=== PATIENT | female | born 1930 | race Caucasian/White ===

== ENCOUNTER 2018-03-07 17:16 | Emergency (ER) | payer MEDICAID, OTHER ==
[~2018-03-07] VITALS: Ht 154.9 cm; Wt 77.2 kg
[~2018-03-07 17:16] MED LIST: CHOL100062 PO; PRAM0.5T5 PO; PRAV80TA27 PO; RIVA20TA5 PO; SIN25100 PO
[2018-03-07] MEDS ORDERED: HYDROmorphONE 2 MG/ML SYG IV ONE (17:30)
[2018-03-07] MEDS ORDERED: ONDANSETRON 4 MG INJ IV ONE (17:30)
[2018-03-07 17:40] VITALS: Ht 154.9 cm; Wt 77.2 kg
--- NOTE | 2018-03-07 19:01 | ERD ---
ER Documentation Chief Complaint Chief Complaint PT BIB RA WITH C/O L HIP AFTER GLF, NO KO. HPI This is a 88-year-old female who is sitting on the side of her bed when she slid off the end and landed on her buttocks/left hip. This happened just prior to arrival. The pain is in the left hip and described as sharp and worse with mo vement. She is unable to bear weight. She did not have any other injury no radicular pain down the legs or loss of bowel or bladder no low back pain. No loss of consciousness ROS All systems reviewed and are negative except as per history of present illness. Medications Home Meds Reported Medications Pravastatin Sodium* (Pravastatin Sodium*) 80 Mg Tablet, 80 MG PO HS, TAB 10/05/14 Pramipexole* (Mirapex*) 0.5 Mg Tablet, 0.5 MG PO HS, TAB 10/05/14 Rivaroxaban* (Xarelto*) 20 Mg Tablet, 20 MG PO WITH LUNCH, TAB 10/05/14 Cholecalciferol* (Vitamin D3*) 1,000 Unit Tablet, 1000 UNIT PO DAILY, TAB 10/05/14 Carbidopa-Levodopa* (Sinemet*) 25-100 Mg Tab, 1 TAB PO TID, TAB 10/05/14 Allergies Allergies: Coded Allergies: Penicillins (Verified Allergy, Unknown, 10/05/14) PMhx/Soc History of Surgery: No Anesthesia Reaction: No Hx Neurological Disorder: No Hx Respiratory Disorders: Yes (ASTHMA) Hx Cardiac Disorders: Yes (HTN, DVT) Hx Psychiatric Problems: No Hx Miscellaneous Medical Probl: No Hx Alcohol Use: No Hx Substance Use: No Hx Tobacco Use: No Smoking Status: Never smoker FmHx Family History: No coronary disease Physical Exam Vitals Vital Signs Date Temp Pulse Resp B/P (MAP) Pulse Ox O2 O2 Flow FiO2 Time Delivery Rate 03/07/18 97.9 80 18 196/96 94 17:40 (129) Physical Exam Const: Well-developed, well-nourished Head: Atraumatic, normocephalic Eyes: Normal Conjunctiva, PERRLA, EOMI, normal sclera, no nystagmus ENT: Normal External Ears, Nose and Mouth, moist mucus membranes. Neck: Full range of motion. No meningismus, no lymphadenopathy. Resp: Clear to auscultation bilaterally, no wheezing, rhonchi, rales Cardio: Regular rate and rhythm, no murmurs, S1 S2 present Abd: Soft, non tender x 4, non distended. Normal bowel sounds, no guarding or rebound, no pulsitile abdominal masses or bruits Skin: No petechiae or rashes, no ecchymosis , no maculopapular rash Back: No midline or flank tenderness Ext: No cyanosis, or edema, FROM x 4, the left leg is shortened and externally rotated, no range of motion of left hip due to pain, neurovascularly intact x 4 Neur: Awake and alert, STR 5/5 x 4, sensation intact x 4, no focal findings, cerebellum intact Psych: Normal Mood and Affect Result Diagram: 03/07/18173903/07/181739 Results 24 hrs Laboratory Tests Test 03/07/18 17:40 White Blood Count 5.4 10^3/ul Red Blood Count 4.59 10^6/ul Hemoglobin 13.7 g/dl Hematocrit 43.4 % Mean Corpuscular Volume 94.6 fl Mean Corpuscular Hemoglobin 29.8 pg Mean Corpuscular Hemoglobin Concent 31.6 g/dl Red Cell Distribution Width 13.8 % Platelet Count 187 10^3/UL Mean Platelet Volume 9.3 fl Immature Granulocytes % 0.400 % Neutrophils % 61.0 % Lymphocytes % 27.4 % Monocytes % 6.6 % Eosinophils % 3.9 % Basophils % 0.7 % Nucleated Red Blood Cells % 0.0 /100WBC Immature Granulocytes # 0.020 10^3/ul Neutrophils # 3.3 10^3/ul Lymphocytes # 1.5 10^3/ul Monocytes # 0.4 10^3/ul Eosinophils # 0.2 10^3/ul Basophils # 0.0 10^3/ul Nucleated Red Blood Cells # 0.0 10^3/ul Prothrombin Time 12.3 Sec Prothrombin Time Ratio 1.0 INR International Normalized Ratio 0.90 Activated Partial Thromboplast Time 26.2 Sec Sodium Level 141 mmol/L Potassium Level 4.4 mmol/L Chloride Level 104 mmol/L Carbon Dioxide Level 28 mmol/L Anion Gap 9 Blood Urea Nitrogen 26 mg/dl Creatinine 1.27 mg/dl Est Glomerular Filtrat Rate mL/min mL/min Glucose Level 115 mg/dl Calcium Level 9.5 mg/dl Total Bilirubin 0.2 mg/dl Direct Bilirubin 0.00 mg/dl Indirect Bilirubin 0.2 mg/dl Aspartate Amino Transf (AST/SGOT) 25 IU/L Alanine Aminotransferase (ALT/SGPT) 10 IU/L Alkaline Phosphatase 92 IU/L Total Protein 8.2 g/dl Albumin 4.6 g/dl Current Medications Medications Dose Sig/Tc Start Time Status Last (Trade) Ordered Route PRN Stop Time Admin Dose Reason Admin 0.5 mg ONCE ONCE 03/07/18 DC 03/07/18 Hydromorphone IV 17:30 03/07/18 17:47 HCl 17:31 (Dilaudid) Ondansetron 4 mg ONCE ONCE 03/07/18 DC 03/07/18 HCl (Zofran IV 17:30 03/07/18 17:46 Inj) 17:31 Procedures/MDM Ordering MD: DONALD LAURA DO Location: E/R Room/Bed: PROCEDURE: One view chest radiograph. CLINICAL INDICATION: Chest pain. Trauma TECHNIQUE: An AP view of the chest was obtained. COMPARISON: 10/05/2014 FINDINGS: Mediastinum: There is calcification of the wall of the thoracic aorta. Heart size: Normal Pulmonary vasculature: No visible engorgement. Lungs: Clear. Lung volumes are very low. Costophrenic sulci: Chronic blunting of the left lateral costophrenic sulcus. Bony structures: Grossly unremarkable for age. IMPRESSION: 1. Atherosclerosis of the thoracic aorta. 2. No evidence of traumatic abnormality of the chest. 3. 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 RPTAT:AAJJ Physician Carlos Date Time Electronically viewed and signed by Physician Carlos on 03/07/2018 17:58 GW/ CC: DONALD LAURA DO [id number] MR #: [id number] DOS: 03/07/18 1727 Ordering MD: DONALD LAURA DO Location: E/R Room/Bed: PROCEDURE: XR Hip. CLINICAL INDICATION: Pain. TECHNIQUE: Two views of the left hip. COMPARISON: None available. FINDINGS: There is a femoral neck fracture with varus angulation. The joint spaces are preserved. There is no significant soft tissue swelling. IMPRESSION: Femoral neck fracture with varus angulation. RPTAT: HTAR .Audi Corona MD, MD Date Time Electronically viewed and signed by .Audi Corona MD, on 03/07/2018 18:08 .R/ CC: DONALD LAURA DO [id number] The patient is stable for transfer to admission. I spoke with Dr. García and he accepted the patient in transfer. Departure Diagnosis: Primary Impression: Closed left hip fracture Encounter type: initial encounter Qualified Codes: S72.002A - Fracture of unspecified part of neck of left femur, initial encounter for closed fracture Condition: Stable DONALD LAURA DO Mar 07, 2018 19:01
[2018-03-07 22:28] VITALS: BP 139/59; PULSE 84; RESP 16
== END 2018-03-07 22:31 | disposition short-term general hospital (02) ==
LOC: E/R 17:16
DX: S72.002A Fracture of unspecified part of neck of left femur, initial encounter for closed fracture (principal); I10 Essential (primary) hypertension; J45.909 Unspecified asthma, uncomplicated; W06.XXXA Fall from bed, initial encounter; Y92.9 Unspecified place or not applicable; Z79.01 Long term (current) use of anticoagulants
CPT/HCPCS: 51702; 71045; 73510; 80048; 80076; 85025; 85610; 85730; 96374; 96375; J1170; J2405; Z7502